=== PATIENT | female | born 2005 | race Caucasian/White ===

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

== ENCOUNTER 2024-05-20 10:13 | Outpatient (CLI) | payer BC, OTHER, SELFPAY ==
--- NOTE | ~2024-05-20 | US_ITS ---
EXAMINATION: US soft tissue head and neck DATE: 05/20/2024 10:30 INDICATION: Swollen lymph nodes. TECHNIQUE: Multiple grayscale and Doppler ultrasound images of the head and neck were obtained. COMPARISON: None FINDINGS: There is a normal superficial lymph node in right posterior scalp. IMPRESSION: 1. Normal superficial lymph node in right posterior scalp. Reviewed, dictated and finalized at location E.
== END 2024-05-20 10:14 ==
LOC: MICIMG 10:14
PROVIDERS: PCP Nurse Practitioner Family; Visit Provider Nurse Practitioner Family
DX: R59.0 Localized enlarged lymph nodes (principal)
CPT/HCPCS: 76536

== ENCOUNTER 2025-03-12 17:09 | Emergency (ER) | payer BC, OTHER, SELFPAY ==
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
[2025-03-12 17:16] VITALS: BP 118/84; PULSE 83; RESP 16; TEMP 36.6; O2SAT 100
--- OUTSIDE RECORDS SUMMARY | 2025-03-12 18:07 | XMS_ITS | Encounter Summary ---
Author Organization [facility] Address [address] [place] [id number] Care Team Providers Care Civil Structural Engineer Name Role Phone Loretta Gold Primary Care Provider [phone] Encounter Details Date Type Department Care Team (Late st Contact Info) Description 07/31/2024 [employer] Message Enc [facility] Family & Internal Medicine [id number] [place] [phone] Loretta Gold FNP [facility] [place] [address] Doctors note Social History Tobacco Use Types Packs/Day Years Used Date Smoking Tobacco: Never Smokeless Tobacco: Never Alcohol Use Standard Drinks/Week Comments Yes 1 (1 standard drink = 0.6 oz pure alcohol) Only drink everyonce in a while maybe twice a month AUDIT-C Answer Date Recorded Frequency of Alcohol Consumption Never 05/23/2019 Average Number of Drinks Not on file 019 Frequency of Binge Drinking Not on file 12/2018 PHQ-2 Answer Date Recorded Patient Health Questionnaire-2 Score 0 11/25/2023 Comments No Sex and Gender Information Value Date Recorded Sex Assigned at Female 01/16/2025 9:29 AM CLERICAL ASSISTANT Legal Sex Female 7:58 PM CDT Gender Identity Female 01/16/2025 9:29 AM CLERICAL ASSISTANT Sexual Orientation Not on file documented as of this encounter Functional Status * Calculated C-SSRS Risk Score (Lifetime/Recent) Answer Date of Assessment Author Status No Risk Indicated 08/02/2024 4:20 PM CDT Fabrice Bose RN Active * [place]ine Suicide Severity Rating Scale (Screener/Recent Self-Report) Question Answer Date of Assessment Author Status 1. Wish to be (Past 1 Month) No 08/02/2024 4:20 PM YAZT Leonila Bose RN Active 2. Non-Specific Active Suicidal Thoughts (Past 1 Month) No 08/02/2024 4:20 PM CDT Leonila Bose RN Active 6. Suicidal Behavior (Lifetime) No 08/02/2024 4:20 PM CDT Leonila Bose RN Active documented as of this encounter Plan of Treatment Upcoming Encounters Date Type Department Care Team (Latest Contact Info) Description 06/01/2025 8:49 AM CDT Hospital Encounter [facility] [address] [place] [id number] Jamie Guzmán MD [address] [address] 06/01/2025 8:49 AM CDT - 06/01/2025 9:19 AM CDT Surgery [facility] [address] [place] [id number] Jamie Guzmán MD [address] [place] [id number] COLONOSCOPY DIAGNOSTIC WITH/WITHOUT SPECIMEN BRUSH/WASH 07/16/2025 2:00 PM CDT Office Visit [facility] Multispecialty Care - [address], [address] [place] [id number] Daina Centeno MD [address] [place] [address] Scheduled Procedures Name Priority Associated Diagnoses Date/Ti me COLONOSCOPY DIAGNOSTIC WITH/WITHOUT SPECIMEN BRUSH/WASH Colitis Irregular bowel habits 06/01/2025 8:49 AM CDT documented as of this encounter Visit Diagnoses Not on filedocumented in this encounter Additional Health Concerns Infection Onset Date Last Indicated Resolved Time COVID-19 Rule Out 08/07/2024 08/07/2024 08/07/2024 11:55 AM CDT Assessment Noted Time PHQ-9 Depression Total Score: 5 11/25/19 24 10:02 AM CLERICAL ASSISTANT documented as of this encounter Care Teams Civil Structural Engineer Relationship Specialty Start Date End Date Loretta Gold FNP [address] [place] [id number] PCP - General Nurse Practitioner Family 05/12/21 documented as of this encounter
--- OUTSIDE RECORDS SUMMARY | 2025-03-12 18:07 | XMS_ITS | Clinical Summary ---
Author Organization [facility] Address [address] [place] [address] Care Team Providers Care Group Fitness Assistant Department Head Name Role Phone Loretta Gold ANNABELLE Primary Care Provider [phone] Allergies No known active allergies Medications vitamin C (ASCORBIC ACID) 250 MG tablet Take 1 tablet (250 mg total) by mouth daily. Active Multiple Vitamins-Minera ls (MULTIVITAL OR) Active acidophilus (FLORAJEN) capsule Take 1 capsule by mouth daily. 30 capsule 4 Active Additional Information Patient not taking.Reported on 01/16/2025 Na sulfate-K sulfate-Mg sulfate (SUPREP BOWEL PREP KIT) 17.5-3.13-1.6 GM/177ML SolutionIndicat ions:Colitis,Ir regular bowel habits Take 177 mLs by mouth every 12 (twelve) hours. Per GI instructions 354 mL 5 Active Active Problems Problem Noted Date Diagnosed Date Irregular bowel habits 01/16/2025 Colitis 08/07/2024 History of diverticulosis 08/01/2024 Chronic tension-type headache, not intractable 0 12/29/2023 History of UTI 12/23/2023 Palpitations 11/01/2023 Elevated TSH 11/01/2023 Fast heart beat 11/01/2023 Hypokalemia 11/01/2023 Fatigue, unspecified type 10/12/2023 Chronic jaw pain 12/25/2022 Encounter for initial prescription of contracept alice pills 01/28/2022 Numerous skin moles 05/23/2019 BMI pediatric, 5th percentile to less than 85% f or age 0807/04/2018 Vitamin D deficiency 01/03/2016 Resolved Problems Problem Noted Date Diagnosed Date Resolved Date Immunization due 12/09/2015 05/19/2021 Well child visit 11/12/2015 05/19/2021 Encounters Date Type Department Care Team Description 01/16/2025 9:20 AM OFFICE MACHINE TECHNICIAN [facility] [place] - [address], [address] [place] [address] Zeenat Goldsmith NP Follow Up (F/u (constipation)) 01/16/2025 Orders Only [facility] [address] [facility] [address] [place] [address] Jamie Guzmán MD 01/16/2025 Travel 01/11/2025 Epic Production Techn[employer] Message Enc [facility] Family [facility] Internal Medicine [address] [address] Francois Wheeler MD Go along with last message. 01/11/2025 [employer] Message Enc [facility] Family [facility] Internal Medicine [address] [address] Francois Wheeler MD Pressure in back from Last 3 Months Immunizations Immunization Administration Dates Next Due DTaP (Daptacel) 03/25/2005,04/02/2004 Dtap (Generic) 06/10/2015 Dtp (Generic) 07/10/2008, 5,04/02/2004,01/27,2003 Flucelvax 6 Months+ (Prefill ed Syringe) 08/04/2020 HPV 05/13/2016,02/14/2016,12/09/2015 HPV4 (Gardasil) 05/13/2016,02/14/2016,12/09/2015 Hepatitis A (Generic) 04/04/2007,09/30/2006 Hepatitis A Vaccine 04/04/2007,09/30/2006 Hepatitis B (Generic Peds) 06/30/2004,04/02/2004 ,2003 Hepatitis B Pediatric 06/30/2004,04/02/2004,06/2003 Hib (Generic) 12/24/2004, 4,01/28/2004,11/28 Influenza Adult (Generic) 09/12/2018,09/11/2018 MMR 07/10/2008,09/29/2004 MMR (Generic) 07/10/2008,09/29/2004 Meningcoccal Group B (Trumen ba)(aka Meningitis) 05/12/2021 Meningococcal (Menactra) 11/19/2021,05/12/2021,0 06/10/2015 Pneumococcal (Prevnar 13) 12/24/2004,04/02/2004, 01/28/2004 Pneumococcal (Prevnar 7) 12/24/2004,03/22,01/28/2004,11/28 Polio IPV (Ipol) 09/29/2004 Polio Ipv (Generic) 07/10/2008, 4,01/28/2004,11/28 Tdap (Generic) 06/10/2015 Varicella (Generic) 06/12/2015,08/20/2008 Varicella Vaccine 06/10/2015 Family History Medical History Relation Comments Heart Maternal Grandfather Hypertension Maternal Grandfather Hypertension Maternal Grandmother Asthma Mother Colonic polyp Mother Hypertension Mother Irritable bowel syndrome Mother Relation Status Comments Maternal Grandfather Maternal Grandmother Mother Social History Tobacco Use Types Packs/Day Years Used Date Smoking Tobacco: Never Smokeless Tobacco: Never Tobacco Cessation:Counseling Given: No Alcohol Use Standard Drinks/Week Comments Yes 1 (1 standard drink = 0.6 oz pure alcohol) Only drink everyonce in a while maybe twice a month B1300 Health Literacy Answer Date Recor ded How often do you need to hav e someone help you when you read instructions, pamphlets, or other written material from your doctor or pharmacy? Never 08/08/2024 [facility] Utilities Answer Date Recorded In the past 12 months has th e electric, gas, oil, or water company threatened to shut off services in your home? No 08/08/2024 Humiliation, Afraid, Rape, and Kick questionnair e Answer Date Recorded Within the last year, have y ou been afraid of your partner or ex-partner? No 08/08/2024 Within the last year, have y ou been humiliated or emotionally abused in other ways by your partner or ex-partner? No Within the last year, have y ou been kicked, hit, slapped, or otherwise physically hurt by your partner or ex-partner? No 08/08/2024 Within the last year, have y ou been raped or forced to have any kind of sexual activity by your partner or ex-partner? No 08/08/2024 Social Connection and Isolat ion Panel [NHANES] Answer Date Recorded In a typical week, how many times do you talk on the phone with family, friends, or neighbors? More than three times a week 08/08/2024 How often do you get togethe r with friends or relatives? More than three times a week 08/08/2024 [facility] attend [facility] or [facility]an catholic services? Patient declined 08/08/2024 Do you belong to any clubs o r organizations such as rastafari groups, unions, fraternal or athletic groups, or school groups? Patient declined 08/08/2024 How often do you attend meet ings of the clubs or organizations you belong to? Patient declined 08/08/2024 Are you , , di vorced, , never , or living with a partner? Patient declined 08/08/2024 AUDIT-C Answer Date Recorded Q1: How often do you have a drink containing alc ohol? Patient declined 08/08/2024 Average Number of Drinks Not on file 024 Frequency of Binge Drinking Not on file 07/23 Overall Financial Resource Strain (CARDIA) Answe r Date Recorded How hard is it for you to pa y for the very basics like food, housing, medical care, and heating? Not hard at all 08/08/2024 PHQ-2 Answer Date Recorded Patient Health Questionnaire-2 Score 0 01/16/2025 [facility] of Occupat ional Health - Occupational Stress Questionnaire Answer Date Recorded Do you feel stress - tense, restless, nervous, or anxious, or unable to sleep at night because your mind is troubled all the time - these days? Not at all 08/08/2024 Hunger Vital Sign Answer Date Recorded Within the past 12 months, y ou worried that your food would run out before you got the money to buy more. Never true 08/08/20 24 Within the past 12 months, t he food you bought just didn't last and you didn't have money to get more. Never true 08/08/2024 PRAPARE - Transportation Answer Date Re corded In the past 12 months, has l ack of transportation kept you from medical appointments or from getting medications? No 07/23 In the past 12 months, has l ack of transportation kept you from meetings, work, or from getting things needed for daily living? No 08/08/2024 Housing Stability Vital Sign Answer Efrain e Recorded In the last 12 months, was t here a time when you were not able to pay the mortgage or rent on time? No 08/08/2024 In the past 12 months, how m any times have you moved where you were living? 1 08/08/2024 At any time in the past 12 m [facility], were you homeless or living in a detention (including now)? No 08/08/2024 Comments No Sex and Gender Information Value Date Recorded Sex Assigned at Female 01/16/2025 9:29 AM OFFICE MACHINE TECHNICIAN Legal Sex Female 7:58 PM CDT Gender Identity Female 01/16/2025 9:29 AM OFFICE MACHINE TECHNICIAN Sexual Orientation Not on file Last Filed Vital Signs Vital Sign Reading Time Taken Comments Blood Pressure 113/65 01/16/2025 9:29 AM OFFICE MACHINE TECHNICIAN Pulse 88 01/16/2025 9:29 AM OFFICE MACHINE TECHNICIAN Temperature 37.3 C (99.1 F) 01/16/2025 9:29 AM OFFICE MACHINE TECHNICIAN Respiratory Rate 16 01/16/2025 9:29 AM OFFICE MACHINE TECHNICIAN Oxygen Saturation 100% 01/16/2025 9:29 AM OFFICE MACHINE TECHNICIAN Inhaled Oxygen Concentration - - Weight 48.5 kg (107 lb) 01/16/2025 9:29 AM OFFICE MACHINE TECHNICIAN Height 160 cm (5' 3 ) 01/16/2025 9:29 AM OFFICE MACHINE TECHNICIAN Body Mass Index 18.95 01/16/2025 9:29 AM OFFICE MACHINE TECHNICIAN Plan of Treatment Upcoming Encounters Date Type Department Care Team (Latest Contact Info) Description 06/01/2025 8:49 AM CDT Hospital Encounter [facility] Surgery [address] [place] [address] Jamie Guzmán MD 3 [facility] [address] [place] [address] 06/01/2025 8:49 AM CDT - 06/01/2025 9:19 AM CDT Surgery [address] [address] Jamie Guzmán MD 3 [facility] [address] [place] [address] COLONOSCOPY DIAGNOSTIC WITH/WITHOUT SPECIMEN BRUSH/WASH 07/16/2025 2:00 PM CDT Office Visit [facility] - [address], [address] [place] [address] Daina Centeno MD 3 [place] [address] Scheduled Procedures Name Priority Associated Diagnoses Date/Ti me COLONOSCOPY DIAGNOSTIC WITH/WITHOUT SPECIMEN BRUSH/WASH Colitis Irregular bowel habits 06/01/2025 8:49 AM CDT Health Maintenance Due Date Last Done Comments Cervical Cancer Screening Pap Smear (Age 21 to 29) Every 3 Years 2003 Cervical Cancer Screening 2003 Chlamydia Screening Females ages 16-24 2019 Meningococcal B Vaccine (2 of 2 - Trumenba SCDM 2-dose series) 11/11/2021 05/12/2021 Annual Physical 05/12/2022 05/12/2021 COVID-19 Vaccine ( season) 2024 DTaP, Tdap and Td Vaccines (8 - Td or Tdap) 06/10/2025 06/10/2015, 06/10/2015, 07/10/2008, Additional history exists Hepatitis B Vaccines Completed 06/30/2004, 06/30/2004, 04/02/2004, Additional history exists Pneumococcal Vaccine: Pediatrics (0 to 5 Years) and At-Risk Patients (6 to 49 Years) Completed 12/24/2004, 12/24/2004, 04/02/2004, Additional history exists HPV Vaccines Completed 05/13/2016, 04/23, 02/14/2016, Additional history exists Meningococcal Vaccine Completed 11/19/2021 , 05/12/2021, 06/10/2015 Hepatitis C Completed 12/10/2023 PHQ-2 (Physician [place]) Completed 01/16/2025 RSV Immunizations Under 20 Months Aged Out No longer eligible based on patient's age to complete this topic Goals Goal Patient Goal Type Associated Problems Recent Progress Patient-Stated? Author Autogenerat ed Goal Care Plan Autogenerated Problem No Jing Lara, synthetic cloth binding cutter Procedure Name Priority Date/Time Associated Diagnosis Comments HEPATITIS C ANTIBODY W/RFX TO HCV RNA Routine 12/10/2023 3:09 PM OFFICE MACHINE TECHNICIAN Potential exposure to STD from Last 3 Months or Most Recently Relevant to Health Maintenance Results * HEPATITIS C ANTIBODY W/RFX TO HCV RNA ([facility] ONLY) (12/10/2023 3:09 PM OFFICE MACHINE TECHNICIAN) HEPATITIS C AB NON-REACT ALICE NON-REACT ALICE [facility] Comment: HCV antibody was non-reactive. There is no laboratory evidence of HCV infection. In most cases, no further action is required. However, if recent HCV exposure is suspected, a test for HCV RNA (test code 34431) is suggested. For additional information please refer to http://education.[employer]/faq/JBY10w4 (This link is being provided for informational/ educational purposes only.) 12/10/2023 3:09 PM OFFICE MACHINE TECHNICIAN 12/10/2023 3:11 PM OFFICE MACHINE TECHNICIAN Narrative [employer] ROBY ORDERS - 12/16/2023 1:20 PM OFFICE MACHINE TECHNICIAN FASTING:NO FASTING: NO Resulting Agency Comment Performing Organization Information: Site ID: [id number] Name: [facility] Address: [id number] [place] [address] Aubrey Todd[place] mendez [id number] Director: Eliana Roberts MD Loretta Gold DAY HABILITATION SUPERVISOR LABORATORY Final Result [facility] [id number] [address] [place] [id number], [place] from Last 3 Months or Most Recently Relevant to Health Maintenance Additional Health Concerns Active Problems Noted Date Diagnosed Date Autogenerated Problem 03/07/2025 [facility] Advance Directives * Full Code (Latest Code Status on File) Date Activated Date Inactivated Comments 08/07/2024 7:06 PM 08/09/2024 1:56 PM Care Teams Group Fitness Assistant Department Head Relationship Specialty Start Date End Date Loretta Gold FNP [address] [place] [address] PCP - General Nurse Practitioner Family 05/12/21
--- OUTSIDE RECORDS SUMMARY | 2025-03-12 18:07 | XMS_ITS | Encounter Summary ---
Author Organization [facility] Address [address] [place] [address] Care Team Providers Care Stripper Printed Circuit Boards Name Role Phone Loretta Gold Primary Care Provider [phone] Encounter Details Date Type Department Care Team (Late st Contact Info) Description 02/02/2024 Cream.HRt Message Enc [facility] Family & Internal Medicine [address] [place] [address] Loretta Gold FNP [address] [place] [address] Back pain Social History Tobacco Use Types Packs/Day Years Used Date Smoking Tobacco: Never Smokeless Tobacco: Never Alcohol Use Standard Drinks/Week Comments Not Currently 0 (1 standard drink = 0.6 oz pur e alcohol) on occasion AUDIT-C Answer Date Recorded Frequency of Alcohol Consumption Never 05/23/2019 Average Number of Drinks Not on file 019 Frequency of Binge Drinking Not on file 12/2018 PHQ-2 Answer Date Recorded Patient Health Questionnaire-2 Score 0 11/25/2023 Comments No Sex and Gender Information Value Date Recorded Sex Assigned at Female 01/16/2025 9:29 AM POWDER HAND Legal Sex Female 7:58 PM CDT Gender Identity Female 01/16/2025 9:29 AM POWDER HAND Sexual Orientation Not on file documented as of this encounter Plan of Treatment Upcoming Encounters Date Type Department Care Team (Latest Contact Info) Description 06/01/2025 8:49 AM CDT Hospital Encounter [facility] [address] [place] [address] Jamie Guzmán MD [address] [address] 06/01/2025 8:49 AM CDT - 06/01/2025 9:19 AM CDT Surgery [facility] [address] [place] [address] Jamie Guzmán MD [address] [address] COLONOSCOPY DIAGNOSTIC WITH/WITHOUT SPECIMEN BRUSH/WASH 07/16/2025 2:00 PM CDT Office Visit [facility] Multispecialty Care - [address], [address] [place] [address] Daina Centeno MD 3 [place] [address] Scheduled Procedures Name Priority Associated Diagnoses Date/Ti [...] Total Score: 5 11/25/19 24 10:02 AM POWDER HAND documented as of this encounter Care Teams Stripper Printed Circuit Boards Relationship Specialty Start Date End Date Loretta Gold FNP [address] [place] [address] PCP - General Nurse Practitioner Family 05/12/21 documented as of this encounter
--- OUTSIDE RECORDS SUMMARY | 2025-03-12 18:07 | XMS_ITS | Encounter Summary ---
Author Organization [facility] Address [address] [place] [address] Care Team Providers Care Sales And Marketing Manager Name Role Phone Loretta Gold Primary Care Provider [phone] Encounter Details Date Type Department Care Team (Late st Contact Info) Description 02/22/2024 Fliqzt Message Enc [facility] Family & Internal Medicine [address] [place] [address] Loretta Gold FNP [facility] [place] [address] Bumps on the back of my head Social History Tobacco Use Types Packs/Day Years [...] Sex Assigned at Female 01/16/2025 9:29 AM HOGSHEAD FILLER Legal Sex Female 7:58 PM CDT Gender Identity Female 01/16/2025 9:29 AM HOGSHEAD FILLER Sexual Orientation Not on file documented as of this encounter Plan of Treatment Upcoming Encounters Date Type Department Care Team (Latest Contact Info) Description 06/01/2025 8:49 AM CDT Hospital Encounter [facility] [address] [place] [address] Jamie Guzmán MD 3 [facility] [address] [place] [address] 06/01/2025 8:49 AM CDT - 06/01/2025 9:19 AM CDT Surgery [facility] [address] [place] [address] Jamie Guzmán MD 3 [facility] [address] [place] [address] COLONOSCOPY DIAGNOSTIC WITH/WITHOUT SPECIMEN BRUSH/WASH 07/16/2025 2:00 PM CDT Office Visit [facility] Multispecialty Care - [address], [address] [place] [address] Daina Centeno MD 3 [place] [address] Scheduled Procedures Name Priority Associated Diagnoses Date/Ti [...] Total Score: 5 11/25/19 24 10:02 AM HOGSHEAD FILLER documented as of this encounter Care Teams Sales And Marketing Manager Relationship Specialty Start Date End Date Loretta Gold FNP [address] [place] [address] PCP - General Nurse Practitioner Family 05/12/21 documented as of this encounter
--- OUTSIDE RECORDS SUMMARY | 2025-03-12 18:07 | XMS_ITS | Encounter Summary ---
Author Organization [facility] Address [address] [place] [address] Care Team Providers Care Pattern Room Attendant Name Role Phone Loretta Gold ANNABELLE Primary Care Provider [phone] Encounter Details Date Type Department Care Team (Late st Contact Info) Description 01/11/2025 Heckyl Message Enc [facility] Family & Internal Medicine [id number] [place] [phone] Francois Wheeler MD [address] [place] [address] Pressure in back Social History Tobacco Use Types Packs/Day Years [...] from your doctor or pharmacy? Never 08/08/2024 [facility] Utilities Answer Date Recorded In the past 12 months has e [facility], gas, oil, or water [employer] threatened to shut off services in your [...] week 08/08/2024 How often do you attend chur or christianity services? Patient declined 08/08/2024 Do you belong to any clubs o r organizations such as pentecostalism groups, unions, fraternal or athletic groups, or [...] Date Recorded Patient Health Questionnaire-2 Score 0 08/23/2024 [facility] of Occupat ional Health - Occupational Stress [...] any time in the past 12 m [facility], were you homeless or living in a prison (including now)? No 08/08/2024 Comments No Sex and Gender Information Value Date Recorded Sex Assigned at Female 01/16/2025 9:29 AM HOME HEALTH ASSISTANT Legal Sex Female 7:58 PM CDT Gender Identity Female 01/16/2025 9:29 AM HOME HEALTH ASSISTANT Sexual Orientation Not on file documented as of this encounter Functional Status * Are you deaf or do you have serious difficulty hearing Answer Date of Assessment Author Status No 08/07/2024 11:00 PM YAZT Lata Rees RN Active * Are you blind or do you have serious difficulty seeing, even when wearing glasses? Answer Date of Assessment Author Status No 08/07/2024 11:00 PM YAZT Lata Rees RN Active * Do you have serious difficulty walking or climbing stairs? Answer Date of Assessment Author Status No 08/07/2024 11:00 PM Lata Warner RN Active * Do you have difficulty dressing or bathing? Answer Date of Assessment Author Status No 08/07/2024 11:00 PM Lata Warner RN Active * Because of a physical, mental, or emotional condition, do you have difficulty doing errands alone such as visiting a doctor's office or shopping? Answer Date of Assessment Author Status No 08/07/2024 11:00 PM Lata Warner RN Active documented as of this encounter Mental Status * Because of a physical, mental, or emotional condition, do you have serious difficulty concentrating, remembering, or making decisions? Answer Entry Date Author Status No 08/07/2024 11:00 PM CDT Lata Rees RN Active documented in this encounter Plan of Treatment Upcoming Encounters Date Type Department Care Team (Latest Contact Info) Description 06/01/2025 8:49 AM CDT Hospital Encounter [address] [address] Jamie Guzmán MD [address] [place] [address] 06/01/2025 8:49 AM CDT - 06/01/2025 9:19 AM CDT Surgery [facility] [address] [place] [address] Jamie Guzmán MD [address] [place] [address] COLONOSCOPY DIAGNOSTIC WITH/WITHOUT SPECIMEN BRUSH/WASH 07/16/2025 2:00 PM CDT Office Visit [facility] Multispecialty Care - [address], [address] [place] [address] Daina Centeno MD [address] [place] [address] Scheduled Procedures Name Priority Associated Diagnoses Date/Ti me COLONOSCOPY DIAGNOSTIC WITH/WITHOUT SPECIMEN BRUSH/WASH Colitis Irregular bowel habits 06/01/2025 8:49 AM CDT documented as of this encounter Visit Diagnoses Not on filedocumented in this encounter Additional Health Concerns Assessment Noted Time PHQ-9 Depression Total Score: 5 11/25/19 24 10:02 AM HOME HEALTH ASSISTANT documented as of this encounter Care Teams Pattern Room Attendant Relationship Specialty Start Date End Date Loretta Gold FNP [address] [place] [address] PCP - General Nurse Practitioner Family 05/12/21 documented as of this encounter
--- OUTSIDE RECORDS SUMMARY | 2025-03-12 18:07 | XMS_ITS | Data Portability ---
Author Organization [facility], [id number] Address [address] [place] [address] Assessment No assessment recorded. Plan of Treatment Reminders Order Date Submit Date Provider Last Modified By Organization Details Last Modified Time Details Appointments None record ed. Lab pap, LB 025 02/01/20 [facility] ([facility]), [address] [facility] [place] , [facility] [address], [place], [address], 13:11:45 Referral None record ed. Procedures None record ed. Surgeries None record ed. Imaging None record ed. Medication Orders None record ed. Patient TargetsNo targets recorded. Patient InstructionsNo instructions recorded. Reason for Referral None Reported. Results Created Date Observation Date Name Description Value Unit Range Abnormal Flag Note LastModifiedBy Organization Detail LastModifiedTime 02/01/2002/02/2025 PAP TEST THIN PREP Pap test thin prep Negati ve for Intrae pithel ial Lesion or Malign vivian normal ACCES ROZINA #: [id number] Sourc e: Cervi chandana/E ndoce rvica l LMP: 5 Date Taken : 01/31 Speci men Type: ThinP rep Vial Date Repor carlos: 2024 Clini chandana Data: Last Pap: N/A (N/A) Cytot ech: EMIR Oshea( CP) Date Repor carlos: 2024 Speci men Adequ acy: Satis facto ry for evalu ation No endoc ervic al/tr ansfo rmati on zone compo nent prese nt Gener al Categ oriza tion: NEGAT ALICE FOR INTRA EPITH ELIAL LESIO N OR MALIG ANGIE This speci men has been mary zed by the ThinP rep Imagi ng Syste m, an inter activ e compu ter syste m which christi ts the lab in the scree aimee of ThinP rep Pap Test slide s. Follo wing imagi ng, the slide was revie wed by a Cytot echno logis t and/o r Patho logis t. Cervi chandana cytol ogy is a scree aimee test prima rily for squam ous cance rs and precu rsors and has assoc iated false -nega tive and false -posi tive resul ts. New techn ologi es such as liqui d-bas ed prepa ratio ns may decre ase but will not elimi hugh all false -nega tive resul ts. Regul ar sampl ing and follo w-up of unexp zacarias d clini chandana signs and sympt oms are recom allyson d to minim ize false negat alice resul ts. End of Repor t Techn ical servi mickie provi ded by [facility] [place], [employer], d/b/a [facility], [address] [place] [address] Cira rawls MD, [facility]. Case revie wed and diagn osis rende red at [facility] [place], [employer], d/b/a Sarah roup, [address] [place] [address] Cira rawls MD, [facility] tor. CONFI DENTI AL Not Available [facility] ([facility]) [address], [place], [address], 02/02/2025 13:11:45 Result Notes None recorded. Problems Name Problem SNOMED Code Status Onset Date Resolution Date Notes Provider Name and Address Organization Details Recorded Time Migraine with aura 8624664 Active 025 TATA LO [address] [facility] [address], [place], [address] , [facility] 01/31/2025 09:25:41 Problem Notes None recorded. Medical Equipment None Reported. Allergies Allergen ID Allergen Name Allergen Category Reaction Reaction Severity Criticality Documentation Date Start Date Code Code System Note Provider Name and Address Organization Details Recorded Time 889900 cat dander environme nt Not available Not available Not available 01/31/2025 [address] KAMI Ding [facility] 08:57:49 No known drug allergies Medications Name Sig Start Date Stop Date Status Note LastModified by Organization Details LastModified Time status covid-19/fl u a-b antigen tst TEST DIRECTED TODAY 01/31 completed Not Available Not Available Not Available fluconazole 150 mg tablet TAKE 1 TABLET BY MOUTH NOW. MAY REPEAT IN 72 HOURS 01/31 completed Not Available Not Available Not Available sulfamethox azole 800 mg-trimetho prim 160 mg tablet TAKE 1 TABLET BY MOUTH TWICE DAILY FOR 10 DAYS 01/31 completed Not Available Not Available Not Available ibuprofen 400 mg tablet 01/31 completed Not Available Not Available Not Available amoxicillin 875 mg-potassiu m clavulanate 125 mg tablet 01/31 completed Not Available Not Available Not Available azithromyci n 500 mg tablet 01/31 completed Not Available Not Available Not Available nitrofurant oin monohydrate /macrocryst als 100 mg capsule 01/31 completed Not Available Not Available Not Available sodium,pota ssium,mag sulfates 17.5 gram-3.13 gram-1.6 gram oral soln TAKE 177 ML BY MOUTH EVERY 12 HOURS PER GI INSTRUCTI ON 01/31 completed Not Available Not Available Not Available Kurvelo (28) 0.15 mg-0.03 mg tablet Take 1 tablet every day by oral route. 01/31 completed Not Available Not Available Not Available Nurtec ODT 75 mg disintegrat ing tablet Take 1 tablet every day by oral route. active Not Available Not Available No t Available Vitals Date Recorded Body height Body mass index (BMI) Body weight Systolic blood pressure Diastolic blood pressure Provider Name and Address Organization Details Last Updated DateTime 01/31/2025 160.02 cm 18.8 kg/m2 26241.79 g 118 mm[Hg] 62 mm[Hg] Christa Ding [facility] 09:04:54 Social History Question Answer Notes LastModified by Organizat ion Details LastModified Time Tobacco Smoking Status Never Smoker Alexandra Jones [facility] 01/15/2025 11:55:35 Do You Have An Advance Directive? No Information not available 01/31/2025 What Is Your Level Of Alcohol Consumption? Occasional Information not available 01/15/2025 How Many Times Per Week Do You Consume Alcohol? Less Than 1 Time Per Week Information not available 01/15/2025 If You Are , What Was Your Level Of Alcohol Consumption Prior To ? Moderate [email or web address] Information not available 01/31/2025 How Many Years Have You Consumed Alcohol? 3 [email or web address] Information not available 01/31/2025 What Is Your Level Of Caffeine Consumption? Moderate [email or web address] Information not available 01/31/2025 Are You Currently Employed? Yes Information not available 01/15/2025 What Type Of Diet Are You Following? 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 Single Information not available 01/15/2025 Do You Use Any Illicit Or Recreational Drugs? No Information not available 01/15/2025 Are You Currently In School? Yes Information not available 01/15/2025 Sex: Unknown Functional Status None recorded. Mental Status None recorded. Family History Relationship Description Onset Age of this Age Resolved Age Notes LastModified by Organization Details LastModified Time Maternal Grandfather Hypertensive disorder tketten Not available 2024 11:54:07 Mother Disorder of thyroid gland tketten Not available 2024 11:54:34 Mother Hypertensive disorder tketten Not available 2024 11:54:42 Medical History No medical history recorded. Gynecological History Statement/Question Response 13 History of PCOS N Flow Moderate History of Fibroids N Date of LMP 01/22/2025 History of Infertility N History of Vulvar Dysplasia N History of Cervical Dysplasia N Current Control Method: Condoms Duration of Flow (days) 5 Age at Menarche 10 History of Recurrent Ovarian Cysts N Age at first intercourse 13 HPV Vaccine Completed History of Endometriosis N Frequency of Cycle (Q days) 22 Sexually Active? Y History of Dysmenorrhea N Menses Monthly Y Sexual Problems? N History of Sexually Transmitted Infectio n N Obstetrics History GPAL:G 0 P 0 0 0 0 Immunizations Vaccine Type Date Status Note Provider Nam gurjit and Address Organization Details Recorded Time Tdap 11/22/2021 completed Alexandra carranza, [facility] 01/15/2025 11:50:23 influenza, unspecified formulation 11/22/2021 completed Alexandra carranza, [facility] 01/15/2025 11:50:32 HPV9 11/22/2022 completed Alexandra carranza 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 [facility] care management 603575656 Z30.9 -happy with condoms at this time-if she decides to try POP-will call office for rx Depression screening 171 609525 Z13.31 -score 0 Health Concerns Section Related Observation LastModified by Organization Detai ls LastModified Time None Recorded Concern Status LastModified by Organization Details LastModified Time None Recorded Advance Directives Directive N: Payers Encounter Date Sequence Insurance Name Policy Number Policy Andres Covered Member ID Andres Member ID Guarantor Name 01/31/2025 1 [place] [id number] Nolan Mello [id number] Ree Mello 01/31/2025 2 [facility] [employer] [id number] [place] [id number] Ree Mello Notes Date Note Type Note Provider Name and Address Organization Details Recorded Time 01/31/2025 text/html [facility] Annual Well-Women Visit Age [age]Reported bypatient.Current Medical History:reviewed and documented Relevant Family History:no family history of breast cancer Last Pap smear:due; has never had a pap smear Contraceptive Method:satisfied with current method; contraceptive method: condoms Sexually Active:Yes: same partner STI Screen:declines STI testing Condom Use:Yes Menstrual cycle:normal menstrual cycle and flowNotes:hx of migraines with aura-was on cocp and migraines got worse so she stopped it. discussed that she should not use estrogen with migraine with aura. happy with condoms at this time. briefly discussed non-estrogen options includine POP, depo, nexplanon, and IUDs. would only be interested in POP out of those options. discussed irregular bleeding/amenorrhea common, less effective than cocp, and would need to take at the same time everyday-voices understanding and will call us if she decides to try them. -jeremías LO [address] [facility] [address], [place], [address], [facility] 01/31/2025 11:14:19 OBGyn Episode No OBEpisode recorded.
== END 2025-03-12 17:38 | disposition home or self-care (01) ==
PROVIDERS: Emergency Provider Nurse Practitioner Family; PCP Nurse Practitioner Family
DX: S09.90XA Unspecified injury of head, initial encounter (principal); W04.XXXA Fall while being carried or supported by other persons, initial encounter
CPT/HCPCS: 99212; G0463

== ENCOUNTER 2025-08-13 14:54 | Emergency (ER) | payer BC, OTHER, SELFPAY ==
[2025-08-13 15:03] VITALS: BP 122/75; PULSE 93; RESP 18; TEMP 36.6; O2SAT 100
--- OUTSIDE RECORDS SUMMARY | 2025-08-13 15:09 | XMS_ITS | Encounter Summary ---
Author Organization [facility] Address [address] [place] [address] Care Team Providers Care Plastics Worker Name Role Phone Loretta Gold Primary Care Provider [phone] Encounter Details Date Type Department Care Team (Late st Contact Info) Description 02/22/2024 [employer] [facility] Message Enc [facility] Family & Internal Medicine [address] [address] Loretta Gold FNP [facility] [place] [address] Bumps on the back of [...] Sex Assigned at Female 01/16/2025 9:29 AM VACUUM PAN OPERATOR Legal Sex Female 7:58 PM CDT Gender Identity Female 01/16/2025 9:29 AM VACUUM PAN OPERATOR Sexual Orientation Not on file documented as of this encounter Plan of Treatment Not on file documented as of this encounter Visit Diagnoses Not on filedocumented in this encounter Additional Health Concerns Infection Onset Date Last Indicated Resolved Time COVID-19 Rule Out 08/07/2024 08/07/2024 08/07/2024 11:55 AM CDT Assessment Noted Time PHQ-9 Depression Total Score: 5 11/25/19 24 10:02 AM VACUUM PAN OPERATOR documented as of this encounter Care Teams Plastics Worker Relationship Specialty Start Date End Date Loretta Gold FNP [address] [place] [address] PCP - General Nurse Practitioner Family 05/12/21 documented as of this encounter
--- OUTSIDE RECORDS SUMMARY | 2025-08-13 15:09 | XMS_ITS | Encounter Summary ---
Author Organization [facility] Address [address] [place] [address] Care Team Providers Care Auto Parker Name Role Phone Loretta Gold Primary Care Provider [phone] Encounter Details Date Type Department Care Team (Late st Contact Info) Description 02/02/2024 [employer] Message Enc [facility] Medical [facility] Family & Internal Medicine [id number] [place] [phone] Loretta Gold FNP [facility] [place] [address] Back pain Social History Tobacco [...] Sex Assigned at Female 01/16/2025 9:29 AM SPINNER CAP FRAME Legal Sex Female 7:58 PM CDT Gender Identity Female 01/16/2025 9:29 AM SPINNER CAP FRAME Sexual Orientation Not on file documented as of this encounter Plan of Treatment Not on file documented as of this encounter Visit Diagnoses Not on filedocumented in this encounter Additional Health Concerns Infection Onset Date Last Indicated Resolved Time COVID-19 Rule Out 08/07/2024 08/07/2024 08/07/2024 11:55 AM CDT Assessment Noted Time PHQ-9 Depression Total Score: 5 11/25/19 24 10:02 AM SPINNER CAP FRAME documented as of this encounter Care Teams Auto Parker Relationship Specialty Start Date End Date Loretta Gold FNP [address] [place] [address] PCP - General Nurse Practitioner Family 05/12/21 documented as of this encounter
--- OUTSIDE RECORDS SUMMARY | 2025-08-13 15:09 | XMS_ITS | Encounter Summary ---
Author Organization [facility] Address [address] [place] [address] Care Team Providers Care Country Printer Apprentice Name Role Phone Loretta Gold ANNABELLE Primary Care Provider [phone] Encounter Details Date Type Department Care Team (Late st Contact Info) Description 01/11/2025 [employer] Message Enc [facility] Medical Group Family & Internal Medicine [address] [place] [phone] Francois Wheeler MD [address] [place] [address] Pressure in back Social History [...] from your doctor or pharmacy? Never 08/08/2024 [facility] Utilities Answer Date Recorded In the past 12 months has e [email or web address], gas, oil, or water [employer] threatened to shut off services in your [...] How often do you attend chur or temple services? Patient declined 08/08/2024 Do you belong to any clubs o r organizations such as jain groups, unions, fraternal or athletic groups, or [...] Recorded Patient Health Questionnaire-2 Score 0 08/23/2024 [facility] of Occupat ional Health - Occupational Stress [...] any time in the past 12 m [facility], were you homeless or living in a jail (including now)? No 08/08/2024 Comments No Sex and Gender Information Value Date Recorded Sex Assigned at Female 01/16/2025 9:29 AM VETERINARY NURSE Legal Sex Female 7:58 PM CDT Gender Identity Female 01/16/2025 9:29 AM VETERINARY NURSE Sexual Orientation Not on file documented as [...] documented in this encounter Plan of Treatment Not on file documented as of this encounter Visit Diagnoses Not on filedocumented in this encounter Additional Health Concerns Assessment Noted Time PHQ-9 Depression Total Score: 5 11/25/19 24 10:02 AM VETERINARY NURSE documented as of this encounter Care Teams Country Printer Apprentice Relationship Specialty Start Date End Date Loretta Gold FNP [address] [place] [address] PCP - General Nurse Practitioner Family 05/12/21 documented as of this encounter
--- OUTSIDE RECORDS SUMMARY | 2025-08-13 15:09 | XMS_ITS | Clinical Summary ---
Author Organization [facility] Address [address] [place] [address] Care Team Providers Care [employer] Salesperson Name Role Phone Loretta Gold ANNABELLE Primary Care Provider [phone] Allergies Active Allergy Reactions Criticality Noted Date Comments Cat Dander Unknown 03/28/2025 Ondansetron Dizziness 06/01/2025 Medications Multiple Vitamins-Minerals (MULTIVITAL OR) Acti ve rimegepant (NURTEC) 75 MG disintegrating tablet 1 tablet (75 mg total) as needed for Migraine. Active amoxicillin-clavula hugh (AUGMENTIN) 875-125 MG tabletIndications:E ar infection Take 1 tablet (875 mg total) by mouth 2 (two) times daily for 10 days. 20 tablet 5 07/29/20 25 Active Problems Problem Noted Date Diagnosed Date [...] Encounters Date Type Department Care Team Description 08/02/2025 Scan HEALTH INFO SRVCS Scanned, Doc Med Group 07/19/2025 Telephone [facility] [address] [phone] Loretta Gold FNP Ear Problem 06/01/2025 8:00 AM CDT - 06/01/2025 8:30 AM CDT Surgery [facility] [address] [place] [address] Jamie Guzmán MD COLONOSCOPY 06/01/2025 7:50 AM CDT Anesthesia Event [facility] [address] [place] [address] Tyrell Calvillo CRNA Rani, Swaroop, MD 06/01/2025 6:51 AM CDT - 06/01/2025 8:48 AM CDT Hospital Encounter [facility] [address] [place] [address] Jamie Guzmán MD Discharge Disposition: Home or Self Care (Routine Discharge) 06/01/2025 Travel 05/31/2025 [facility] [address], [address] [facility] [place] [phone] Jaimie Hlaey, BELL HOLE DIGGER Error 05/31/2025 [facility] - [address] [place] [phone] Jamie Guzmán MD Question from Last 3 Months Immunizations Immunization Administration Dates Next Due DTaP (Daptacel) 03/25/2005,04/02/2004 Dtap (Generic) 06/10/2015 Dtp (Generic) 07/10/2008, 5,04/02/2004,01/27,2003 Flucelvax 6 Months+ (Prefill ed Syringe) 08/04/2020 HPV 05/13/2016,02/14/2016,12/09/2015 HPV GARDASIL 9-VALENT 11/22/2022 HPV4 (Gardasil) 05/13/2016,02/14/2016,12/09/2015 Hepatitis A (Generic) 04/04/2007,09/30/2006 Hepatitis A Vaccine 04/04/2007,09/30/2006 Hepatitis B (Generic Peds) 06/30/2004,04/02/2004 ,2003 Hepatitis B Pediatric 06/30/2004,04/02/2004,06/2003 Hib (Generic) 12/24/2004, 4,01/28/2004,11/28 Influenza (Generic) 11/22/2021 Influenza Adult (Generic) 09/12/2018,09/11/2018 MMR 07/10/2008,09/29/2004 MMR (Generic) 07/10/2008,09/29/2004 Meningcoccal Group B (Trumen ba)(aka Meningitis) 05/12/2021 Meningococcal (Menactra) 11/19/2021,05/12/2021,0 06/10/2015 Pneumococcal (Prevnar 13) 12/24/2004,04/02/2004, 01/28/2004 Pneumococcal (Prevnar 7) 12/24/2004,03/22,01/28/2004,11/28 Polio IPV (Ipol) 09/29/2004 Polio Ipv (Generic) 07/10/2008, 4,01/28/2004,11/28 Tdap (Generic) 11/22/2021,06/10/2015 Varicella (Generic) 06/12/2015,08/20/2008 Varicella Vaccine 06/10/2015 Family [...] No Alcohol Use Standard Drinks/Week Comments Yes 2 (1 standard drink = 0.6 oz pur e alcohol) once a week B1300 Health Literacy Answer Date Recor ded How often do you need to hav e someone help you when you read instructions, pamphlets, or other written material from your doctor or pharmacy? Never 08/08/2024 [facility] Utilities Answer Date Recorded In the past 12 months has e 4vets, ipadio, oil, or water [employer] threatened to shut off services in your [...] How often do you attend chur or spiritism services? Patient declined 08/08/2024 Do you belong to any clubs o r organizations such as roman catholic groups, unions, fraternal or athletic groups, or [...] Recorded Patient Health Questionnaire-2 Score 0 01/16/2025 [facility] - Occupational Stress Questionnaire Answer Date Recorded [...] any time in the past 12 m [facility], were you homeless or living in a intermediate (including now)? No 08/08/2024 Comments No Sex and Gender Information Value Date Recorded Sex Assigned at Female 01/16/2025 9:29 AM BUDGET AND POLICY ANALYST Legal Sex Female 7:58 PM CDT Gender Identity Female 01/16/2025 9:29 AM BUDGET AND POLICY ANALYST Sexual Orientation Not on file Last Filed Vital Signs Vital Sign Reading Time Taken Comments Blood Pressure 113/70 06/01/2025 8:30 AM CDT Pulse 86 06/01/2025 7:24 AM CDT Temperature 36.8 C (98.2 F) 06/01/2025 8:30 AM CDT Respiratory Rate 16 06/01/2025 8:30 AM CDT Oxygen Saturation 100% 06/01/2025 8:30 AM CDT Inhaled Oxygen Concentration - - Weight 49.9 kg (110 lb) 06/01/2025 7:24 AM CDT Height 160 cm (5' 3) 06/01/2025 7:24 AM CDT Body Mass Index 19.49 06/01/2025 7:24 AM CDT Plan of Treatment Health Maintenance Due Date Last Done Comments Cervical Cancer Screening Pap Smear (Age 21 to 29) Every 3 Years 2003 Cervical Cancer Screening 2003 Chlamydia Screening Females ages 16-24 2019 Meningococcal B Vaccine (2 of 2 - Trumenba SCDM 2-dose series) 11/11/2021 05/12/2021 Annual Physical 05/12/2022 05/12/2021 COVID-19 Vaccine () 07/23/2025 DTaP, Tdap and Td Vaccines (9 - Td or Tdap) 11/22/2031 11/22/2021, 06/10/2015, 06/10/2015, Additional history exists Hepatitis B Vaccines Completed 06/30/2004, 06/30/2004, 04/02/2004, Additional history exists Pneumococcal Vaccine: Pediatrics (0 to 5 Years) and At-Risk Patients (6 to 49 Years) Completed 12/24/2004, 12/24/2004, 04/02/2004, Additional history exists Meningococcal Vaccine Completed 11/19/2021 , 05/12/2021, 06/10/2015 HPV Vaccines Completed 11/22/2022, 04/23, 05/13/2016, Additional history exists Hepatitis C Completed 12/10/2023 PHQ-2 (Physician [place]) Completed 01/16/2025 RSV Immunizations Under 20 Months Aged Out No longer eligible based on patient's age to complete this topic Procedures Procedure Name Priority Date/Time Associated Diagnosis Comments COLONOSCOPY FLX DX W/COLLJ SPEC WHEN PFRMD 06/01/2025 7:50 AM CDT Colitis Irregular bowel habits Case Notes C CHORIONIC GONADOTROPIN HCG QL STAT 06/01/2025 7:04 AM CDT HEPATITIS C ANTIBODY W/RFX TO HCV RNA Routine 12/10/2023 3:09 PM BUDGET AND POLICY ANALYST Potential exposure to STD from Last 3 Months or Most Recently Relevant to Health Maintenance Results * CHORIONIC GONADOTROPIN HCG QL (06/01/2025 7:04 AM CDT) Pathologist [facility] PREG SCREEN-SERUM NEGATIVE NEGATIVE 06/01/2025 7:31 AM CDT [facility] 06/01/2025 7:04 AM CDT Jamie Guzmán MD LABORATORY Final Result Performing Organization Address City/[facility]/ZIP Co de Phone Number [facility] [address] [place] [address], [place] [phone] * HEPATITIS C ANTIBODY W/RFX TO HCV RNA ([facility] ONLY) (12/10/2023 3:09 PM BUDGET AND POLICY ANALYST) [facility] HEPATITIS C AB NON-REACT ALICE NON-REACT ALICE [employer] [facility] Comment: HCV antibody was non-reactive. There is no laboratory evidence of HCV infection. In most cases, no further action is required. However, if recent HCV exposure is suspected, a test for HCV RNA (test code 15974) is suggested. For additional information please refer to http://education.RentHop/faq/ESC47e3 (This link is being provided for informational/ educational purposes only.) 12/10/2023 3:09 PM BUDGET AND POLICY ANALYST 12/10/2023 3:11 PM BUDGET AND POLICY ANALYST Narrative for; to (do) DIAGNOSTICS - [facility] - 12/16/2023 1:20 PM BUDGET AND POLICY ANALYST FASTING:NO FASTING: NO Resulting Agency Comment Performing Organization Information: Site ID: [id number] Name: [facility] Address: [address] [id number] Director: Eliana Roberts MD us Loretta ALANIS LABORATORY Final Result [facility] [id number] [address] [facility] [address], from Last 3 Months or Most Recently Relevant to Health Maintenance [facility] BLUE CROSS BLUE SHIELD Advance Directives * Full Code (Latest Code Status on File) Date Activated Date Inactivated Comments 08/07/2024 7:06 PM 08/09/2024 1:56 PM Care Teams [employer] Salesperson Relationship Specialty Start Date End Date Loretta Gold FNP [address] [place] [phone] PCP - General Nurse Practitioner Family 05/12/21
--- OUTSIDE RECORDS SUMMARY | 2025-08-13 15:09 | XMS_ITS | Encounter Summary ---
Author Organization [facility] Address [address] [place] [address] Care Team Providers Care Library Historian Name Role Phone Loretta Gold LIFE INSURANCE SALES Primary Care Provider [phone] Encounter Details Date Type Department Care Team (Latest Contact Info) Description 08/02/2025 Scan MG HEALTH INFO SRVCS Scanned, Doc Med Group Social History Tobacco Use Types Packs/Day Years Used Date Smoking Tobacco: Never Smokeless Tobacco: Never Alcohol Use Standard Drinks/Week Comments Yes 2 (1 standard drink = 0.6 oz pur e alcohol) once a week B1300 Health Literacy Answer Date Recor ded How often do you need to hav e someone help you when you read instructions, pamphlets, or other written material from your doctor or pharmacy? Never 08/08/2024 [facility] Utilities Answer Date Recorded In the past 12 months has e [employer], gas, oil, or water [employer] threatened to shut off services in your [...] 08/08/2024 How often do you attend chur ch or episcopalian services? Patient declined 08/08/2024 Do you belong to any clubs o r organizations such as uatsdin groups, unions, fraternal or athletic groups, or [...] Recorded Patient Health Questionnaire-2 Score 0 01/16/2025 [facility] - Occupational Stress Questionnaire Answer Date Recorded [...] any time in the past 12 m [facility], were you homeless or living in a jail (including now)? 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 Answer Date of Assessment Author Status No 08/07/2024 11:00 PM Lata Warner RN Active * Do you have serious [...] Date Author Status No 08/07/2024 11:00 PM Lata Warner RN Active documented in this encounter Plan of Treatment Not on file documented as of this encounter Visit Diagnoses Not on filedocumented in this encounter Additional Health Concerns Assessment Noted Time PHQ-9 Depression Total Score: 5 11/25/19 24 10:02 AM CIGARETTE CARTON SEALER documented as of this encounter Care Teams Library Historian Relationship Specialty Start Date End Date Loretta Gold FNP [address] [place] [id number] PCP - General Nurse Practitioner Family 05/12/21 documented as of this encounter
--- OUTSIDE RECORDS SUMMARY | 2025-08-13 15:09 | XMS_ITS | Encounter Summary ---
Author Organization [facility] Address [address] [place] [address] Care Team Providers Care Gis Programmer Name Role Phone Loretta Gold Primary Care Provider [phone] Encounter Details Date Type Department Care Team (Late st Contact Info) Description 07/31/20[address] [employer] Message Enc 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 Wish to be (Past 1 Month) No 08/02/2024 4:20 PM Leonila Skaggs RN Active 2. Non-Specific Active Suicidal Thoughts (Past 1 Month) No 08/02/2024 4:20 PM Leonila Skaggs RN Active 6. 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
--- NOTE | 2025-08-13 15:13 | ED.SKABFB ---
HPI - Skin/Abscess/Foreign Bdy General Chief complaint: Skin/Abscess/Foreign Body Stated complaint: Bug bite Time Seen by Provider: 08/13/25 15:14 Source: patient, RN notes reviewed and old records reviewed Mode of arrival: ambulatory Limitations: no limitations History of Present Illness HPI narrative: 19-year-old female who presents to [facility] accompanied by mother with complaints 9 day duration of insect bites to her right forearm. Patient states that they have been more irritated with itching for the past 24 hours and is concerned because the bite on her mid forearm has noted redness with some raised tissue around. Patient reports no fevers or drainage of sites x4. Patient reports no problems with breathing or with swallowing denies any known fevers. Patient has applied Benadryl ointment x1 to sites.Patient reports that they are more itchy when she showers MD complaint: insect bite/sting Onset (ago): day(s) (9) Location: RUE Severity: mild Treatments prior to arrival: other (benadryl cream X1) Related Data Allergies Allergy/AdvReac Type Severity Reaction Status Date / Time No Known Allergies Allergy Verified 08/13/25 15:04 Review of Systems Review of Systems: CONSTITUTIONAL: Denies fever, chills, or sweats. CARDIOVASCULAR: Denies chest pain, palpitations, or edema. RESPIRATORY: Denies cough or dyspnea. GASTROINTESTINAL: Denies abdominal pain, nausea, vomiting SKIN: Reports redness and swelling to bug bites on right arm for the past 9 days. Denies purulent drainage, vesicles, pain beyond proportion, states is itchy MUSCULOSKELETAL: Denies myalgia. NEUROLOGIC: Denies headache, numbness All systems reviewed & are unremarkable except as noted in HPI and below PMFSH Past Medical History Medical History (Updated 08/13/25 @ 15:45 by Zeinab Roth NP) Closed head injury without loss of consciousness Surgical History Surgical History No history of previous surgery Social History Social History Smoking status: Never smoker Alcohol intake: current Alcohol use details: social Substance use type: does not use Living arrangements: with family Gender identity (if verbalized by the patient): Female Comments At time of signature, agree with nursing past medical, surgical, social and family history. There is no relevant family history pertinent to the presenting complaint Exam Narrative: GENERAL: Well-appearing, well-nourished, and in no acute distress. HEAD: Normocephalic, atraumatic. EYES: PERRLA and EOMI. ENT: Nares clear, no rhinorrhea or epistaxis. Mucous membranes moist. NECK: Supple.no lymphadenopathy CHEST: Clear to auscultation. No respiratory distress. no cough or congestion noted SAO2 100% on room air HEART: Regular rate and rhythm. No murmur heard. Normal peripheral pulses. ABDOMEN: Soft, nontender, nondistended, normal active bowel sounds. EXTREMITIES: Normal range of motion. No edema. SKIN: Warm, dry. Erythema, induration around bite right mid forearm with surrounding tissue raised 0.5 cm redness, 3 other bites on right arm without any redness, some scabs present,no tenderness no warmth no drainage. NEURO: No focal deficits. Alert and oriented x3. Course Course Emergency Course: Patient is aware of diagnosis, understands and agrees to treatment plan. Anticipatory guidance given. Patient agrees to follow-up as directed and is aware of reasons to seek care at the emergency department. Portions of this record may have been created with voice recognition software Level of Care: Express Care Visit Vital Signs Vital signs: Vital Signs Temperature 36.6 C 08/13/25 15:03 Pulse Rate 93 08/13/25 15:03 Respiratory Rate 18 08/13/25 15:03 Blood Pressure 122/75 08/13/25 15:03 Pulse Oximetry 100 08/13/25 15:03 Oxygen Delivery Room Air 08/13/25 15:03 Temperature 36.6 C 08/13/25 15:03 Pulse Rate 93 08/13/25 15:03 Respiratory Rate 18 08/13/25 15:03 Blood Pressure 122/75 08/13/25 15:03 Pulse Oximetry 100 08/13/25 15:03 Oxygen Delivery Room Air 08/13/25 15:03 Reviewed MDM - Skin/Abscess/Foreign Bdy MDM Narrative Medical decision making narrative: Does not appear at this time to be erythema multiforme, bullous, SJS, TEN; no evidence at this time to suggest RMSF, endocarditis or Lyme disease; patient looks well, nontoxic and is tolerating oral intake; no neurologic signs or symptoms; no headache, photophobia or neck pain; afebrile; appropriate for initial outpatient treatment; discussed the importance of follow-up, patient agrees. Patient does not have history of penetrating trauma, laceration, blunt trauma, recent surgery, immunosuppression, malignancy, obesity, alcoholism, corticosteroid use. Question cellulitis, necrotizing soft tissue infection, abscess. Differential Diagnosis Differential diagnosis: Likely abscess of skin or subcutaneous tissue, cellulitis, insect bites and contact dermatitis Medical Records Attestation: I reviewed the patient's medical records. Critical Care Time Critical Care Time Critical Care Time: No Discharge Plan Discharge Clinical Impression: Insect bites Qualifiers: Encounter type: initial encounter Site of insect bite: forearm Laterality: right Qualified Code(s): S50.861A - Insect bite (nonvenomous) of right forearm, initial encounter Patient Disposition: Home Condition: Stable Instructions: Antibiotic Form, Insect Bite or Sting (ED) Additional Instructions: Cleanse areas with liquid Dial soap twice daily and apply mupirocin ointment twice daily watch for any infection--redness, swelling, drainage Tylenol or ibuprofen for any fever follow up with PCP in 7-10 days for a wound check recheck if develop fever, chills, increasing symptom Go to the ER if your symptoms become worse of if ANY new symptoms develop Antibiotic as prescribed complete all doses If your symptoms persist, change or worsen significantly before you can contact your personal physician then please, without delay, go to the emergency department for further evaluation. Follow-up with PCP in 7-10 days or sooner if needed Patient Language: Yakut Prescriptions: New mupirocin [Centany] 2 % ointment 1 applic topical BID Qty: 22 0RF cephalexin 500 mg capsule 500 mg PO Q12H Qty: 14 0RF Follow-up/Referrals: CAROL,HAYDE ANGEL [Primary Care Provider] Time of Disposition: 15:25 Quality Kailyn Coma Scale Eyes: Open Verbal: Oriented and Alert Motor: Follows Commands Peterson Coma Total Score: 15
== END 2025-08-13 15:28 | disposition home or self-care (01) ==
PROVIDERS: Emergency Provider Registered Nurse; PCP Nurse Practitioner Family
DX: S50.861A Insect bite (nonvenomous) of right forearm, initial encounter (principal); W57.XXXA Bitten or stung by nonvenomous insect and other nonvenomous arthropods, initial encounter
CPT/HCPCS: 99213; G0463

== ENCOUNTER 2025-09-06 19:27 | Emergency (ER) | payer BC, OTHER, SELFPAY ==
--- OUTSIDE RECORDS SUMMARY | 2025-09-06 19:30 | XMS_ITS | Data Portability ---
Author Organization [facility], [id number] Address [address] [place] [address] Assessment No assessment recorded. Plan of Treatment Reminders Order Date Submit Date Provider Last Modified By Organization Details Last Modified Time Details Appointments None record ed. Lab pap, LB 025 02/01/20 [facility] ([facility]), [address], [facility] [address], [place], [address], 13:11:45 Referral None record ed. Procedures None [...] Data: Last Pap: N/A (N/A) Cytot ech: Nikkie Diaz, CT( CP) Date Repor carlos: 2024 Speci men [...] Techn ical servi mickie provi ded by [facility] [email or web address], d/b/a Sarah angel, [address] [place] [address] Cira Peña. Ayla rawls MD, Labor ator Dire tor. Case revie wed and diagn osis rende red at [facility] [employer] [employer], d/b/a Sarah angel, [address] [place] [address] Cira rawls MD, Labor ator Dire tor. CONFI DENTI AL Not Available [facility] ([facility]) [address], [place], [address], 02/02/2025 13:11:45 Result Notes None recorded. Problems Name Problem SNOMED Code Status Onset Date Resolution Date Notes Provider Name and Address Organization Details Recorded Time Migraine with aura 1595401 Active 025 TATA LO [address], [place], [address] , [facility] 01/31/2025 09:25:41 Problem Notes None recorded. Medical Equipment None Reported. Allergies Allergen ID Allergen Name Allergen Category Reaction Reaction Severity Criticality Documentation Date Start Date Code Code System Note Provider Name and Address Organization Details Recorded Time 945910 cat dander environme nt Not available Not available Not available 01/31/2025 Christa Ding [facility] 08:57:49 No [...] Body mass index (BMI) Body weight Systolic And Diastolic Provider Name and Address Organization Details Last Updated DateTime 01/31/2025 160.02 cm 18.8 kg/m2 06092.79 g 118/62 mm[Hg] Christa Ding [facility] 01/31/2025 09:04:54 Social History Question Answer Notes LastModified by Organizat ion Details LastModified Time Tobacco Smoking Status Never Smoker Alexandra Jones(TERM) null, [facility] 01/15/2025 11:55:35 Do You Have An Advance Directive? No [email or web address] Information not available 01/31/2025 If You Are , What Was Your Level Of Alcohol Consumption Prior To ? Moderate [email or web address] Information not available 01/31/2025 How Many Years Have You Consumed Alcohol? 3 [email or web address] Information not available 01/31/2025 What Is Your Level Of Caffeine Consumption? Moderate [email or web address] Information not available 01/31/2025 What Type Of Diet Are You Following? REGULAR [email or web address] Information not available 01/31/2025 What Is Your Relationship Status? Single Information not available 01/15/2025 Are You Currently In School? Yes Information not available 01/15/2025 Sex: Unknown Functional Status Question Answer Note LastModified by Organizat ion Details LastModified Time How many times per week do you consume alcohol? Less than 1 time per week Information not available 01/15/2025 Do you use any illicit or recreational drugs? No Information not available 01/15/2025 What is your level of alcohol consumption? Occasional Information not available 01/15/2025 Are you currently employed? 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 Family History Relationship Description Onset Age of this Age Resolved Age Notes LastModified by Organization Details LastModified Time Maternal Grandfather Hypertensive disorder [email or web address] Not available 2024 11:54:07 Mother Disorder of thyroid gland [email or web address] Not available 2024 11:54:34 Mother Hypertensive disorder [email or web address] Not available 2024 11:54:42 Mother Hyperthyroid ism Hypert hyroid ism [email or web address] Not available 03/22/2025 18:36:00 Medical History Condition Response Cancer- Genetic screening Gynecological History Statement/Question Response 13 History of PCOS N Flow Moderate History of Fibroids N Date of LMP 01/22/2025 History of Infertility N History of Vulvar Dysplasia N History of Cervical Dysplasia N Current Control Method: Condoms Duration of Flow (days) 5 Age at Menarche 10 Current Control Method History of Recurrent Ovarian Cysts N Age at first intercourse 13 HPV Vaccine Completed History of Endometriosis N Frequency of Cycle (Q days) 22 Sexually Active? Y History of Dysmenorrhea N Menses Monthly Y Sexual Problems? N History of Sexually Transmitted Infectio n N Obstetrics History GPAL:G 0 P 0 0 0 0 Immunizations Vaccine Type Date Status Note Provider Nam e and Address Organization Details Recorded Time Tdap 11/22/2021 completed Alexandra Jones(TERM) null, [place] - [facility] 01/15/2025 11:50:23 influenza, unspecified formulation 11/22/2021 completed Alexandra Jones(TERM) [place], [place] [facility] 01/15/2025 11:50:32 HPV9 11/22/2022 completed Alexandra Jones(TERM) null, [place] [facility] 01/15/2025 11:50:43 Past Encounters Encounter ID Performer Location Encounter Start Date Encounter Closed Date Diagnosis/Indication Diagnosis SNOMED-CT Code Diagnosis ICD10 Code Diagnosis IMO Codes Diagnosis Note [id number] [address], MD [id number] [facility] [address] [facility] [place] [place] [address] 01/31/2025 08:49:53 01/31/2025 09:28:29 Screening for malignant neoplasm of cervix 277851173 Z12.4 -pap today-we will call you with results Gynecologi c examination 39877097 Z01.419 -f/u 1 year for annual [employer] exam [facility] ion care management 572793714 Z30.9 -happy with condoms at this time-if she decides to try POP-will call office for rx Depression screening 171 561587 Z13.31 -score 0 Health Concerns Section Related Observation LastModified by Organization Detai ls LastModified Time None Recorded Concern Status LastModified by Organization Details LastModified Time None Recorded Advance Directives Directive N: Payers Insurance Date Sequence Insurance Name Policy Number Policy Andres Covered Member ID Andres Member ID Guarantor Name 02/05/2025 2 [facility] [id number] [id number] Ree Mello 02/05/2025 1 [facility] (PPO) [id number] Nolan Mello [id number] Ree Mello Notes Date Note Type Note Provider Name and Address Organization Details Recorded Time 5 text/html [facility] Annual Well-Women Visit Age 21-29Reported by PatientPreventive Health ScreeningsFor current medical history, patient reportsreviewed and documented. For relevant family history, patient reportsno family history of breast cancer. For last pap smear, patient reportsdue(has never had a pap smear).ContraceptionFor contraceptive method, patient reportssatisfied with current methodandcontraceptive method: condoms.Sexually ActiveFor sexually active, patient reportsyes: same partner.STI ScreenFor sti screen, patient reportsdeclines sti testing. For condom use, patient reportsyes.Menstrual History/SymptomsFor menstrual cycle, patient reportsnormal menstrual cycle and flow.hx of migraines with aura-was on cocp and [...] if she decides to try them. -jeremías CANELA MYLES [address], [place], [address], [facility] 01/31/2025 11:14:19 OBGyn Episode No OBEpisode recorded.
[2025-09-06 19:34] VITALS: BP 128/87; PULSE 84; RESP 16; TEMP 36.5; O2SAT 100
[2025-09-06 19:44] LABS: EDUAAPPEAR Clear; EDUABILI Negative (Negative); EDUABLOOD Negative (Negative); EDUACOLOR1 Yellow; EDUAGLUCOSE Negative (Negative); EDUAKETONE Negative (Negative); EDUALEUKO Trace (Negative); EDUANITRATE Negative (Negative); EDUAPH 7.0; EDUAPROTEIN Negative (Negative); EDUASPGRAVITY 1.010; EDUAUROBILI 0.2
--- NOTE | 2025-09-06 19:51 | ED.FEMALEGU ---
HPI - Female Genitourinary General Chief complaint: Urogenital-Female Stated complaint: UTI Time Seen by Provider: 09/06/25 19:40 Source: patient Mode of arrival: ambulatory Limitations: no limitations History of Present Illness HPI Narrative: 19-year-old female presents with complaint of dysuria and frequency starting this morning. Afebrile. Denies nausea vomiting. Patient denies concern for or STI. All systems reviewed and negative except as noted above. Related Data Allergies Allergy/AdvReac Type Severity Reaction Status Date / Time No Known Allergies Allergy Verified 09/06/25 19:37 [facility] Past Medical History Medical History (Updated 09/06/25 @ 19:44 by Loretta Perez NP) Closed head injury without loss of consciousness Surgical History Surgical History No history of previous surgery Social History Social History Smoking status: Never smoker Alcohol intake: current Alcohol use details: social Substance use type: does not use Living arrangements: with family Gender identity (if verbalized by the patient): Female Comments At time of signature, agree with nursing past medical, surgical, social and family history. There is no relevant family history pertinent to the presenting complaint. Exam Narrative: GENERAL: This is a well-nourished, well-developed patient, in no apparent distress. HEAD: normocephalic, atraumatic. EYES: PERRL. Sclera clear/white. Vision is grossly intact. EARS: External ears normal NOSE: External nose normal NECK: Neck supple, non-tender without lymphadenopathy, masses or thyromegaly. CARDIOVASCULAR: Regular rate and rhythm without murmurs, gallops, or rubs. RESPIRATORY: Clear to auscultation. Breath sounds equal bilaterally. No wheezes, rales, or rhonchi. SKIN: warm, Dry, intact with no suspicious lesions or rash, good texture and turgor. NEURO: awake, alert, and oriented to person, place and time. There were no obvious focal neurologic abnormalities. EXTREMITIES: No joint tenderness, effusion, or edema noted. Course Course Level of Care: Express Care Visit Vital Signs Vital signs: Vital Signs Temperature 36.5 C 09/06/25 19:34 Pulse Rate 84 09/06/25 19:34 Respiratory Rate 16 09/06/25 19:34 Blood Pressure 128/87 09/06/25 19:34 Pulse Oximetry 100 09/06/25 19:34 Oxygen Delivery Room Air 09/06/25 19:34 Temperature 36.5 C 09/06/25 19:34 Pulse Rate 84 09/06/25 19:34 Respiratory Rate 16 09/06/25 19:34 Blood Pressure 128/87 09/06/25 19:34 Pulse Oximetry 100 09/06/25 19:34 Oxygen Delivery Room Air 09/06/25 19:34 Reviewed MDM - Female Genitourinary MDM Narrative Medical decision making narrative: trace leukocytes. Urine culture ordered. Will treat patient with Augmentin due to patient's urinary symptoms. Patient is well-appearing, nontoxic. Differential Diagnosis Differential diagnosis: Likely urinary tract infection Lab Data Labs: Lab Results 09/06/25 Range/Units 19:42 POC Urine Color Yellow POC Urine Clarity Clear POC Urine pH 7.0 POC Ur Specif [place] 1.010 POC Urine Protein Negative (Negative) POC Ur Glucose (UA) Negative (Negative) POC Urine Ketones Negative (Negative) POC Urine Blood Negative (Negative) POC Urine Nitrite Negative (Negative) POC Urine Bilirubin Negative (Negative) POC Urine Urobilinogen 0.2 POC U Leukocyte Esteras Trace (Negative) Discharge Plan Discharge Clinical Impression: Urinary tract infection Patient Disposition: Home Condition: Stable Instructions: Antibiotic Form, Urinary Tract Infection in Women (ED) Additional Instructions: Take antibiotic as prescribed until gone. Follow-up with your doctor if symptoms are not improving. If you have severe pain, fever, vomiting go to the ER. Patient Language: Arabic Prescriptions: New phenazopyridine [Pyridium] 200 mg tablet 200 mg PO TID PRN (Reason: pain) 3 Days Qty: 10 0RF amoxicillin-pot clavulanate [Augmentin] 500-125 mg tablet 1 tablet PO BID 5 Days Qty: 10 0RF Follow-up/Referrals: CAROL,HAYDE ANGEL [Primary Care Provider] Stand Alone Forms: Work/School Release IP Time of Disposition: 19:45
== END 2025-09-06 19:49 | disposition home or self-care (01) ==
PROVIDERS: Emergency Provider Nurse Practitioner Family; PCP Nurse Practitioner Family
DX: N39.0 Urinary tract infection, site not specified (principal)
CPT/HCPCS: 81003; 87086; 99213; G0463